=== PATIENT | male | born 1985 | race Caucasian/White ===

== ENCOUNTER 2020-05-08 20:50 | Emergency (ER) | payer OTHER, SELFPAY ==
[2020-05-08 20:57] VITALS: BP 126/74; PULSE 68; RESP 18; TEMP 36.4; O2SAT 97; BMI 27.6
[2020-05-08] MEDS: TET,DIPH,PERTUSS(ACELL),VAC/PF 0.5 ML SYRINGE IM (21:30)
[2020-05-08] MEDS: BACITRACIN OINT 0.9 GM PCKT 1 APPLIC TOP (21:30)
[2020-05-08] MEDS: LIDO 1%/SOD BICARB 8.4% (10ML) 10 ML SYRINGE INJ (21:30)
[2020-05-08 22:40] VITALS: BP 126/74; PULSE 69; RESP 15; O2SAT 100
--- NOTE | 2020-05-08 22:42 | ED.WOUNDLAC ---
HPI - Wound/Laceration General Chief Complaint: Wound/Laceration Stated Complaint: states gash on his right arm Time Seen by Provider: 05/08/20 21:24 Source: patient Mode of arrival: Ambulatory Limitations: no limitations History of Present Illness HPI narrative: 34-year-old gentleman was putting his kids to bed reaching deep into a dresser drawer and discovered there was a nail sticking out and suffered a laceration to the dorsal portion of his right forearm. It is clean and linear, does not extend into any tendon or fascial sheaths Related Data Previous Rx's Medication Instructions Recorded diazepam [Valium] 5 mg PO Q12HP PRN #10 tab 12/18/17 meclizine 25 mg PO Q6HP PRN #20 tab 12/18/17 ondansetron [Zofran ODT] 4 mg SUBLINGUAL Q6HP PRN #20 odt 12/18/17 Allergies Allergy/AdvReac Type Severity Reaction Status Date / Time No Known Allergies Allergy Uncoded 01/31/18 12:51 Review of Systems Review of Systems Narrative: Pertinent positive and negative findings as per HPI Remainder of review of systems is otherwise unremarkable for Constitutional: Fevers, chills, weakness ENT: No sore throat, neck pain, ear pain CV: Chest pain, palpitations, dyspnea on exertion Respiratory: Cough, wheeze, dyspnea GI: Nausea, vomiting, diarrhea, change in bowel habits, black or bloody stools Patient History Medical History (Updated 05/08/20 @ 23:57 by Stephany Robertson MD) Healthy adult (Acute) Social History Smoking Status: Never smoker Smoking Status: Never smoker alcohol intake frequency: a few times a week Substance Use Type: does not use Exam Narrative Exam Narrative: General: Alert appropriate in no acute distress Respiratory: Able to speak in full sentences, no obvious respiratory distress Skin: No obvious rashes, warm and dry Neurologic: Grossly intact no obvious asymmetries or abnormalities Psych, appropriate insight and affect, cooperative Extremity: 5 cm straight laceration mid dorsal forearm. Neurovascularly intact. No deeper structures involved and no pain or tenderness with wrist and finger flexion and extension. Neurovascularly intact distal to the wound. Initial Vital Signs Initial Vital Signs: Vital Signs Temperature 97.5 F L 05/08/20 20:57 Pulse Rate 68 07/17/20 20:57 Respiratory Rate 18 05/08/20 20:57 Blood Pressure 126/74 05/08/20 20:57 Pulse Oximetry 97 05/08/20 20:57 Procedures Laceration Repair Laceration 1: Site: upper extremity Side (If applicable): right Size (cm): 5 Description: linear Depth: simple, single layer Local Anesthetic: lidocaine 1% and with bicarb Amount of anesthesia used (mL): 4 Pre-repair: wound explored Skin layer closed with: nylon Size (cm): 4-0 Number of sutures: 5 Technique: simple, interrupted and horizontal mattress Course Orders Ordered: Discontinued Medications Bacitracin (Bacitracin) 1 applic TOP NOW ONE Stop: 05/08/20 21:26 Last Admin: 05/08/20 21:30 Dose: 1 applic Documented by: RYAN Diphtheria/Tetanus/Acell Pertussis (Adacel) 0.5 ml IM .ONCE ONE Stop: 05/08/20 21:26 Last Admin: 05/08/20 21:30 Dose: 0.5 ml Documented by: RYAN Lidocaine/Sodium Bicarbonate (Buffered Lidocaine 10 Ml Syr) 10 ml INJ NOW ONE Stop: 05/08/20 21:26 Last Admin: 05/08/20 21:30 Dose: 10 ml Documented by: RYAN Vital Signs Vital signs: Vital Signs - 8 hr 05/08/20 20:57 05/08/20 22:40 Temperature 97.5 F L Pulse Rate 68 69 Respiratory Rate 18 15 Blood Pressure 126/74 126/74 Pulse Oximetry 97 100 [facility] - Wound/Laceration Medical Records Attestation: I reviewed the patient's medical records. [facility] Narrative Medical decision making narrative: Simple laceration to the right forearm. Sutured without difficulty. Tetanus status updated. Did clearly reviewed signs and symptoms of deeper forearm infection should he develop any complications with clear instructions to return for further evaluation. Patient is safe for home discharge Discharge Plan Departure Patient Disposition: Home Clinical Impression: Laceration Discharge Date/Time: 05/08/20 22:41 Instructions: Tetanus, Diphtheria, and Pertussis Vaccine, DI for Laceration Repair Activity Restrictions/Additional Instructions: Thank you for coming in today Your wound is through the skin completely but does not look like it got into the tendons or tissue planes that her deeper in the forearm. Infections at this site can sometimes be more difficult to figure out. If you notice that moving her fingers is hurting more, your entire forearm is more swollen or your having any fevers as well as simple infection at the site with any pus draining from it, you do need to be seen and evaluated again. It was otherwise a clean wound and I expected to heal completely. The stitches need to be removed on or about 05/15 (7 days). You are welcome to return to the emergency room or [place] Good luck with your upcoming move. Prescriptions: No Action meclizine 25 MG tablet 25 mg PO Q6HP PRNQty: 20 RF: 0 ondansetron [Zofran ODT] 4 MG tablet,disintegrating 4 mg Sublingual Q6HP PRNQty: 20 RF: 0 diazepam [Valium] 5 MG tablet 5 mg PO Q12HP PRNQty: 10 RF: 0
== END 2020-05-08 22:41 | disposition home or self-care (01) ==
PROVIDERS: Emergency Provider Emergency Medicine
DX: S51.811A Laceration without foreign body of right forearm, initial encounter (principal); W45.0XXA Nail entering through skin, initial encounter; Z23 Encounter for immunization
CPT/HCPCS: 12002; 90471; 99282; 99283; 90715